=== PATIENT | male | born 1950 | race Caucasian/White ===

== ENCOUNTER 2016-12-18 14:17 | Emergency (ER) | payer BC, MEDICARE ==
[2016-12-18 14:30] VITALS: BP 166/86
--- NOTE | 2016-12-18 15:37 | UC ---
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 FELT ITS WINGS FLUTTER, WONDERS IF INSECT IS STILL IN EAR CANAL - History of Current Complaint Chief Complaint: UCEar Stated Complaint: FB IN EAR Time Seen by Provider: 12/18/16 14:42 Hx Obtained From: Patient Onset/Duration: Sudden Onset, Lasting Hours, Still Present Severity Initially: Mild Severity Currently: None Aggravating Factors: Nothing Alleviating Factors: Nothing Associated Signs/Symptoms: Positive: Foreign Body Sensation - Allergies/Home Medications Allergies/Adverse Reactions: Allergies Allergy/AdvReac Type Severity Reaction Status Date / Time No Known Allergies Allergy Verified 12/18/16 14:30 Home Medications: Home Medications Hydrochlorothiazide TAB* [Hydrodiuril TAB*] 25 mg PO DAILY 12/18/16 [History Confirmed 12/18/16] amLODIPine TAB* [Norvasc 5 mg TAB*] 10 mg PO DAILY 12/18/16 [History Confirmed 12/18/16] PMH/Surg Hx/FS Hx/Imm Hx Previously Healthy: Yes Endocrine History Of: Reports: Diabetes - Type II Cardiovascular History Of: Reports: Hypertension - Surgical History Surgical History: Yes Surgery Procedure, Year, and Place: KNEE SURGERIES - Family History Known Family History: Negative: Respiratory Disease - Social History Lives: With Family Alcohol Use: Weekly Substance Use Type: None Smoking Status (MU): Light Every Day Tobacco Smoker Type: Cigarettes Amount Used/How Often: 1/2 PPD Length of Time of Smoking/Using Tobacco: started at age 31 Cessation Counseling: Patient Advised to Stop Review of Systems Constitutional: Negative Skin: Negative Eyes: Negative ENT: Ear Ache - FB SENSATION RIGHT EAR Respiratory: Negative Cardiovascular: Negative Gastrointestinal: Negative Genitourinary: Negative Motor: Negative Neurovascular: Negative Musculoskeletal: Negative Neurological: Negative Psychological: Negative All Other Systems Reviewed And Are Negative: Yes Physical Exam Triage Information Reviewed: Yes Appearance: Well-Appearing, No Pain Distress, Well-Nourished Vital Signs: Initial Vital Signs Temp 96.3 F 12/18/16 14:25 Pulse 86 12/18/16 14:25 Resp 16 12/18/16 14:25 BP 166/86 12/18/16 14:25 Pulse Ox 96 12/18/16 14:25 Vital Signs Reviewed: Yes Eye Exam: Normal ENT Exam: Normal ENT: Positive: Normal ENT inspection, Hearing grossly normal, Pharynx normal, TMs normal, Other: - MILD CERUMEN DEPOSIT IN RIGHT EAR, NO INSECT VISUALISED Dental Exam: Normal Neck exam: Normal Neck: Positive: Supple, Nontender, No Lymphadenopathy Respiratory Exam: Normal Respiratory: Positive: Chest non-tender, Lungs clear, Normal breath sounds, No respiratory distress, No accessory muscle use Cardiovascular Exam: Normal Cardiovascular: Positive: RRR, No Murmur, Pulses Normal Abdominal Exam: Normal Abdomen Description: Positive: Nontender, No Organomegaly Musculoskeletal Exam: Normal Musculoskeletal: Positive: Strength Intact, ROM Intact Neurological Exam: Normal Psychological Exam: Normal Psychological: Positive: Normal Response To Family Skin Exam: Normal Ear Complaint Course/Dx - Differential Dx/Diagnosis Differential Diagnosis/HQI/PQRI: Foreign Body, Otitis Externa, Otitis Media, URI Provider Diagnoses: RIGHT CERUMEN IRRIGATION, NO FB VISUALIZED Discharge - Discharge Plan Condition: Stable Disposition: HOME Patient Education Materials: Ear Foreign Body (ED) Referrals: Rip Feng MD [Primary Care Provider] -
== END 2016-12-18 15:34 | disposition home or self-care (01) ==
LOC: UCEAST 14:17
DX: H61.21 Impacted cerumen, right ear (principal); E11.9 Type 2 diabetes mellitus without complications; I10 Essential (primary) hypertension; F17.210 Nicotine dependence, cigarettes, uncomplicated
CPT/HCPCS: 99212; G0463

== ENCOUNTER 2021-05-25 12:21 | Observation (INO) ==
[~2021-05-25 12:21] MED LIST: Buffered Lidocaine 1% SYRIN 1 ml INTRADERM ONE; Lactated Ringers 1000 ml BAG 1,000 ML IV SCH
[2021-05-25] MEDS ORDERED: ceFAZolin 2 GM in NS PREMIX 2 GM/100 ML BAG IVPB ONE (12:51)
[2021-05-25 13:16] LABS: INR 1.11 (0.86-1.15)
[2021-05-25] MEDS ORDERED: ROPIVACAINE 5 MG/ML 30 ML BTL (0.5%) ONE ×2 (13:20→16:31)
[2021-05-25] MEDS ORDERED: Lidocaine 1% MPF 5 ML VIAL ONE (13:20)
[2021-05-25] MEDS ORDERED: Midazolam 5 mg/5 ml VIAL 1 mg/ml 5 ml VIAL (5 mg) ONE (14:23)
[2021-05-25] MEDS ORDERED: Midazolam 2 mg/2 ml VIAL 1 mg/ml 2 ml VIAL (2 mg) ONE (16:35)
[2021-05-25] MEDS ORDERED: Glycopyrrolate IV 0.2 MG/ML 1 ML VIAL ONE (17:03)
[2021-05-25] MEDS ORDERED: Naloxone 0.4 mg VIAL 0.4 mg/ml 1 ml VIAL IV PRN (17:07)
[2021-05-25] MEDS ORDERED: HYDROmorphone 1 MG/1 ML SYRINGE IV PRN (17:07)
[2021-05-25] MEDS ORDERED: DiMENhydriNATE IV 50 mg/ml 1 ml VIAL IV PUSH PRN (17:07)
[2021-05-25] MEDS ORDERED: fentaNYL 100 mcg/2 ml 50 MCG/ML VIAL ONE (18:21)
[2021-05-25] MEDS ORDERED: Morphine 2 MG/ML SYRINGE IV PRN (18:39)
[2021-05-25] MEDS ORDERED: diPHENhydraMINE 25 mg TAB PO PRN (18:39)
[2021-05-25] MEDS ORDERED: Ondansetron 4 mg VIAL 2 MG/ML 2 ml VIAL IV PRN (18:39)
[2021-05-25] MEDS ORDERED: Lactulose 30 ml UDC PO PRN (18:39)
[2021-05-25] MEDS ORDERED: Ondansetron ODT 4 mg TAB 4 MG TAB PO PRN (18:39)
[2021-05-25] MEDS ORDERED: oxyCODONE/Acetamin 5/325 mg TAB PO PRN (18:39)
[2021-05-25] MEDS ORDERED: Magnesium Hydroxide LIQ 30 ML UDC PO PRN (18:39)
[2021-05-25] MEDS ORDERED: diPHENhydraMINE IV 50 MG/ML 1 ml VIAL (BENADRYL) IV PRN (18:39)
[2021-05-25] MEDS ORDERED: Lactated Ringers 1000 ml BAG 1,000 ML IV SCH (19:00)
[2021-05-25] MEDS ORDERED: Dextrose 50% Syringe 50 ml 25 GM/50 ML SYRINGE IV PUSH PRN (20:40)
[2021-05-25] MEDS: Magnesium Hydroxide LIQ 30 ML UDC PO SCH (22:19)
[2021-05-25] MEDS: ceFAZolin 1 GM ADVAN 1 GM in NS 0.9% 50 ML 50 ML IVPB SCH (23:30)
[2021-05-25] MEDS ORDERED: Insulin GLARGINE 100 un/ml 10 ml VIAL SUBCUT SCH (23:30)
[2021-05-26] MEDS: oxyCODONE/Acetamin 5/325 mg TAB PO PRN ×2 (01:29→12:31)
[2021-05-26] MEDS: ceFAZolin 1 GM ADVAN 1 GM in NS 0.9% 50 ML 50 ML IVPB SCH (07:33)
[2021-05-26 08:33] LABS: ABS Basophils 0.1 10^3/ul (0-0.2); ABS Lymphocytes 1.1 10^3/ul (1.0-4.8); ABS Neutrophils 10.2 10^3/ul (1.5-7.7); Eosinophil % 0.4 %; Hematocrit 40 % (42-52); Hemoglobin 13.9 g/dL (14.0-18.0); Lymphocyte % 9.2 %; Mean Corpuscular HGB Conc 35 g/dL (31-36); Mean Corpuscular Hemoglobin 34 pg (27-31); Mean Corpuscular Volume 97 fL (80-94); Mean Platelet Volume 7.4 fL (7.4-10.4); Platelet Count 178 10^3/uL (150-450); Red Cell Distribution Width 14 % (10-15); White Blood Count 12.4 10^3/uL (3.5-10.8)
[2021-05-26 08:50] LABS: Calcium 8.7 mg/dL (8.6-10.3)
[2021-05-26] MEDS ORDERED: Vitamin THERAPEUTIC TAB PO SCH (09:00)
[2021-05-26] MEDS: Magnesium Hydroxide LIQ 30 ML UDC PO SCH (09:24)
[2021-05-26 11:29] VITALS: BP 151/75
== END 2021-05-26 14:15 | disposition home or self-care (01) ==
LOC: SSU 12:21 → OR 12:21
PROVIDERS: ADMIT Internal Medicine; ATTEND Orthopaedic Surgery Adult Reconstructive Orthopaedic Surgery